=== PATIENT | male | born 1955 | race Caucasian/White ===

== ENCOUNTER 2018-06-10 21:17 | Emergency (ER) | payer OTHER ==
[~2018-06-10] VITALS: Ht 170.2 cm; Wt 90.7 kg
[~2018-06-10 21:17] MED LIST: ASPI81EC PO; CYCL10 PO; FISH1000 PO; MULVITA PO
[2018-06-10] MEDS ORDERED: METO50ER PO (21:37)
[2018-06-10] MEDS ORDERED: LISI20 PO (21:37)
[2018-06-10] MEDS ORDERED: ROSUVASTATIN CA40 MG PO (21:37)
[2018-06-10] MEDS ORDERED: Ultram50 MG PO (23:03)
== END 2018-06-10 23:14 | disposition home or self-care (01) ==
LOC: ER 21:17
DX: S20.212A Contusion of left front wall of thorax, initial encounter (principal); S30.811A Abrasion of abdominal wall, initial encounter; M54.9 Dorsalgia, unspecified; G89.29 Other chronic pain; F17.210 Nicotine dependence, cigarettes, uncomplicated; Z79.82 Long term (current) use of aspirin; Z79.899 Other long term (current) drug therapy; Z98.890 Other specified postprocedural states; Z95.2 Presence of prosthetic heart valve; W19.XXXA Unspecified fall, initial encounter
CPT/HCPCS: 71046; 99283-25

== ENCOUNTER 2018-07-26 12:31 | Day surgery (SDC) | payer OTHER ==
[~2018-07-26] VITALS: Ht 170.2 cm; Wt 93.2 kg
[~2018-07-26 12:31] MED LIST changes: +Aspir 8181 MG PO; +LISI20 PO; +METO50ER PO; +Nitrostat0.4 MG SL; +ROSUVASTATIN CA40 MG PO; +Ultram50 MG PO; +XARELTO2.5 MG PO
--- NOTE | 2018-07-26 13:50 | NUR ---
07/26/18 1350 Shania Murray V PT VOMITED SMALL AMOUNT OF CLEAR BILE. SUCTION PERFORMED. ZOFRAN GIVEN BY ANESTHESIOLOGIST. O2 SATURATION REMAINING >92%.
--- NOTE | 2018-07-26 14:21 | NUR ---
07/26/18 1421 Shania Murray V MINOR EXPIRATORY WHEEZES HEARD IN BASES OF BOTH LUNGS. PT DOING BREATHING TX PER DR. MUSA.
--- NOTE | 2018-07-26 14:32 | NUR ---
07/26/18 1432 Shania Murray ASCULTATED POST BREATHING TX, LUNGS SOUND CLEAR THROUGHOUT, NO WHEEZES. PT STATES HE IS FEELING WELL; NO PAIN AND NAUSEA. PT TEACHING COMPLETED. PT D/C HOME PER PROTOCOL.
== END 2018-07-26 14:35 | disposition home or self-care (01) ==
LOC: ORSCSDS 12:31
PROVIDERS: Surgery
PROC: 0DBL8ZX Excision of Transverse Colon, Via Natural or Artificial Opening Endoscopic, Diagnostic (ICD-10-PCS; principal; 2018-07-26 13:45)
PROC: 0DBK8ZX Excision of Ascending Colon, Via Natural or Artificial Opening Endoscopic, Diagnostic (ICD-10-PCS; principal; 2018-07-26 13:45)
PROC: 3E0H8GC Introduction of Other Therapeutic Substance into Lower GI, Via Natural or Artificial Opening Endoscopic (ICD-10-PCS; principal; 2018-07-26 13:45)
DX: Z12.11 Encounter for screening for malignant neoplasm of colon (principal); D12.2 Benign neoplasm of ascending colon; D12.3 Benign neoplasm of transverse colon; I10 Essential (primary) hypertension; F17.210 Nicotine dependence, cigarettes, uncomplicated; J44.9 Chronic obstructive pulmonary disease, unspecified; I25.10 Atherosclerotic heart disease of native coronary artery without angina pectoris; I25.2 Old myocardial infarction; Z79.899 Other long term (current) drug therapy; Z79.82 Long term (current) use of aspirin
CPT/HCPCS: 88305; J2405; J7120

== ENCOUNTER 2021-01-27 09:59 | Emergency (ER) | payer OTHER ==
[~2021-01-27] VITALS: Ht 167.6 cm; Wt 94.3 kg
[2021-01-27] MEDS ORDERED: METO100ER PO (10:54)
[2021-01-27] MEDS ORDERED: LISI20 PO (10:54)
[2021-01-27] MEDS ORDERED: PLAVIX75 MG PO (10:54)
[2021-01-27 11:11] LABS: Source, Urine Clean Catch
[2021-01-27 11:15] LABS: Appearance, Urine Hazy (Clear); Bilirubin, Urine Neg (Neg); Blood, Urine 5+ (Neg); Color, Urine Yellow (P-Yellow); Glucose Qualitative, Urine Neg (Neg); Ketones, Urine 1+ (Neg); Leukocyte Esterase, Urine 1+ (Neg); Nitrite, Urine Neg (Neg); Protein, Urine 3+ (Neg); Specific Gravity, Urine 1.025 (1.003-1.022); Urobilinogen, Urine 1+ (Normal)
[2021-01-27 11:19] LABS: BASOPHILS ABSOLUTE AUTO 0.06 K/mm3 (0.00-0.23); BASOPHILS PERCENT AUTO 1 % (0-2); EOSINOPHILS ABSOLUTE AUTO 0.19 K/mm3 (0.00-0.68); EOSINOPHILS PERCENT AUTO 2 % (0-6); Hematocrit 42.3 % (37.0-53.0); Hemoglobin 12.6 g/dL (13.5-17.5); IMMATURE GRAN ABSOLUTE AUTO 0.05 K/mm3 (0.00-0.10); IMMATURE GRAN PERCENT AUTO 1 % (0-1); LYMPHOCYTES PERCENT AUTO 20 % (21-46); MONOCYTES ABSOLUTE AUTO 0.84 K/mm3 (0.16-1.47); MONOCYTES PERCENT AUTO 8 % (4-13); Mean Corpuscular HGB Conc 29.8 g/dL (31.5-36.5); Mean Corpuscular Volume 77 fL (80-100); Mean Platelet Volume 9.6 fL (9.1-12.4); NEUTROPHILS ABSOLUTE AUTO 7.77 K/mm3 (1.96-9.15); NEUTROPHILS PERCENT AUTO 70 % (41-73); Platelet Count 432 K/mm3 (150-400); RDW Coefficient Variation 18.5 % (11.7-14.2); RDW Standard Deviation 50.3 fL (35.1-46.3); Red Blood Cell Count 5.49 M/mm3 (4.30-5.90); White Blood Cell Count 11.11 K/mm3 (4.00-11.30)
[2021-01-27 11:24] LABS: Bacteria Mod /hpf; Red Blood Cells, Urine 25-50 /hpf (0-2); Squamous Epithelial Cells Rare /hpf (Few)
[2021-01-27 11:25] LABS: Granular Casts 25-50 /lpf (0); Mucus Light (0-Heavy)
[2021-01-27 12:00] LABS: Albumin, Blood 3.9 g/dL (3.4-5.0); Albumin/Globulin Ratio 1.1 (0.8-1.8); Bilirubin, Total 0.4 mg/dL (0.1-1.0); Bun/Creatinine Ratio 8.9 (12.0-20.0); Calcium, Blood 8.9 mg/dL (8.5-10.1); Creatinine, Blood 1.46 mg/dL (0.60-1.20); Globulin, Blood 3.7 g/dL (2.2-4.0); Potassium, Blood 4.4 mmol/L (3.5-5.5); Total Protein, Blood 7.6 g/dL (6.4-8.2)
== END 2021-01-27 14:05 | disposition home or self-care (01) ==
LOC: ER 09:59
PROVIDERS: Emergency Medicine
DX: N13.2 Hydronephrosis with renal and ureteral calculous obstruction (principal); F17.200 Nicotine dependence, unspecified, uncomplicated; Z79.899 Other long term (current) drug therapy; Z79.82 Long term (current) use of aspirin; Z88.8 Allergy status to other drugs, medicaments and biological substances
CPT/HCPCS: 36415; 74176; 80053; 81001; 83690; 85025; 87086; 96361; 96374; 96375; 96376; 99284-25; J1170; J2405; J7120

== ENCOUNTER → 2022-05-24 | Outpatient (CLI) | payer OTHER ==
[~2022-05-24] MED LIST changes: +METO100ER PO; +PLAVIX75 MG PO
[2022-05-24 13:57] LABS: Stool Occult Bld Immuno 1 Positive (NEGATIVE)
== END | disposition home or self-care (01) ==
LOC: LAB SHORT 10:38 → LAB 10:38 → LAB FUT 03-25 09:10
PROVIDERS: Family Medicine
DX: E78.5 Hyperlipidemia, unspecified (principal); E11.9 Type 2 diabetes mellitus without complications; D50.9 Iron deficiency anemia, unspecified; I10 Essential (primary) hypertension; R79.9 Abnormal finding of blood chemistry, unspecified
CPT/HCPCS: G0328

== ENCOUNTER → 2023-07-20 | Outpatient (CLI) | payer OTHER ==
[2023-07-20 12:07] LABS: Stool Occult Bld Immuno 1 Positive (NEGATIVE)
== END ==
LOC: LAB SHORT 07:40 → LAB 07:40
PROVIDERS: Family Medicine
DX: Z09 Encounter for follow-up examination after completed treatment for conditions other than malignant neoplasm (principal); Z87.19 Personal history of other diseases of the digestive system
CPT/HCPCS: G0328

== ENCOUNTER 2025-01-07 13:38 | Day surgery (SDC) | payer OTHER ==
[~2025-01-07] VITALS: Ht 167.6 cm; Wt 82.5 kg
[2025-01-07] MEDS ORDERED: CLOP75 (14:02)
[2025-01-07] MEDS ORDERED: AMLO5 (14:02)
[2025-01-07] MEDS ORDERED: 1/2 NS 250ml250 ML (14:02)
[2025-01-07] MEDS ORDERED: EZET10 (14:02)
[2025-01-07] MEDS ORDERED: NITR.4SL (14:03)
[2025-01-07] MEDS ORDERED: SILD25T (14:03)
[2025-01-07] MEDS ORDERED: TRAM50 (14:03)
--- NOTE | 2025-01-07 15:34 | NUR ---
01/07/25 1534 Maria Alejandra Rodriguez DURING ASSESSMENT WITH , PT STATED FELT LIGHT-HEADED/"JITTERY". MD ORDERED CHEM BG TESTED AT BEDSIDE IN PRE-OP BEFORE PROCEDURE. BG 91 AT 1515. MD NOTIFIED AND AWARE. OKAY TO PROCEED WITH PROCEDURE. PT STATED "PROBABLY JUST HUNGRY" AND "I TYPICALLY DO NOT WAIT THIS LONG TO EAT."
[2025-01-07] MEDS ORDERED: Albuterol 2.5 MG/3 ML VIAL ONE (16:06)
--- NOTE | 2025-01-07 16:21 | NUR ---
01/07/25 1621 Julisa Nazario 1550: VERBAL ORDER FROM MAYTE LLANES FOR ALBUTEROL 2.5MG/ML BREATHING TREATMENT INHALATION X1 FOLLOWING PROCEDURE D/T COARSE LUNGS PRIOR TO PROCEDURE.
[2025-01-07 16:41] VITALS: BP 140/78
== END 2025-01-07 16:32 | disposition home or self-care (01) ==
LOC: ORSCSDS 13:38
PROVIDERS: Surgery
PROC: 0DB98ZX Excision of Duodenum, Via Natural or Artificial Opening Endoscopic, Diagnostic (ICD-10-PCS; principal; 2025-01-07 15:15)
PROC: 0DB78ZX Excision of Stomach, Pylorus, Via Natural or Artificial Opening Endoscopic, Diagnostic (ICD-10-PCS; principal; 2025-01-07 15:15)
PROC: 0DB48ZX Excision of Esophagogastric Junction, Via Natural or Artificial Opening Endoscopic, Diagnostic (ICD-10-PCS; principal; 2025-01-07 15:15)
DX: D50.9 Iron deficiency anemia, unspecified (principal); K29.70 Gastritis, unspecified, without bleeding; K20.90 Esophagitis, unspecified without bleeding; I10 Essential (primary) hypertension; J44.9 Chronic obstructive pulmonary disease, unspecified; F17.210 Nicotine dependence, cigarettes, uncomplicated; Z79.899 Other long term (current) drug therapy
CPT/HCPCS: 82947; 88305; 88342; J2704